=== PATIENT | male | born 1935 | race Caucasian/White ===

== ENCOUNTER 2020-11-06 10:41 | Observation (INO) ==
--- NOTE | 2020-11-06 10:52 | Emergency Department Note ---
History of Present Illness General Chief complaint: Skin Problem Stated complaint: blisters/vasquez on right side of upper arm Time Seen by Provider: 11/06/20 10:49 Source: patient Mode of arrival: ambulatory Limitations: no limitations History of Present Illness Provider Complaint: + rash Onset (ago): day(s) (12) Location: + generalized Severity: severe Current Pain Intensity: 0 Quality: + pruritic Pain Consistency: + constant Relieved By: + none Exacerbated By: + none Context: + other Associated symptoms: + denies other symptoms Treatments prior to arrival: + other (Received trial of steroids as well as Bactrim ) Home Medications Medication Instructions Recorded Confirmed Type aspirin 81 mg tablet,delayed 81 mg PO DAILY #0 10/09/07 11/06/20 History release atenolol 25 mg tablet 25 mg PO DAILY #0 10/09/07 11/06/20 History atorvastatin 40 mg tablet 40 mg PO PM #0 tab 09/14/13 11/06/20 History insulin aspart U-100 100 unit/mL 16 - 18 unit SUBCUT TID 05/02/18 11/06/20 History (3 mL) subcutaneous pen (Novolog Flexpen U-100 Insulin aspart) insulin glargine 100 unit/mL (3 60 unit SUBCUT BID 05/02/18 11/06/20 History mL) subcutaneous pen (Lantus Solostar U-100 Insulin) allopurinol 100 mg tablet 100 mg PO BID 11/06/20 11/06/20 History ascorbic acid (vitamin C) 500 mg 500 mg PO DAILY 11/06/20 11/06/20 History tablet (Vitamin C) famotidine 10 mg tablet 10 mg PO Q2D 11/06/20 11/06/20 History indapamide 2.5 mg tablet 2.5 mg PO DAILY 11/06/20 11/06/20 History losartan 50 mg tablet 50 mg PO DAILY 11/06/20 11/06/20 History rosuvastatin 40 mg tablet 40 mg PO DAILY 11/06/20 11/06/20 History semaglutide 1 mg/dose (4 mg/3 mL) 1 mg SUBCUT WK 11/06/20 11/06/20 History subcutaneous pen injector (Ozempic) sulfamethoxazole 400 1 tab PO BID 11/06/20 11/06/20 History mg-trimethoprim 80 mg tablet Allergies Allergy/AdvReac Type Severity Reaction Status Date / Time No Known Allergies Allergy Mild Verified 11/06/20 12:01 Past Med/Surg History Medical History Bladder cancer Bladder tumor Diabetes Rotator cuff arthropathy of both shoulders Surgical History History of cystoscopy bladder CA Social History Smoking Status: Unknown if ever smoked Hx Alcohol Use: No Hx Substance Use: No Preferred Language: Albanian Communication Ability: Effective Workforce Management Manager Required: No Beliefs That Will Affect Care: None Current Living Situation: Spouse Other Information That Helps Us Care for You: No Feels Safe at Home: Yes Assistive Devices: Denture - Upper, Denture - Lower and Hearing Aid - Bilateral Review of Systems See HPI for pertinent positives & negatives. and A total of 10 systems reviewed and were otherwise negative Physical Exam Vital Signs: Vital Signs - 24 hr 11/06/20 11:00 11/06/20 11:34 11/06/20 13:27 Pulse Rate [Apical ] 55 L 60 Respiratory Rate 20 18 Blood Pressure [Le ft Arm] 133/79 133/79 Blood Pressure Yue n [Left Arm] 97 97 Pulse Oximetry 95 97 Oxygen Delivery Me thod Room Air Room Air Sepsis Recent Feve r Within 48 Hours No Sepsis New/Unexpla ined Change in Men alexus Status No Physical Exam: GENERAL: Wearing a mask. NAD, non-toxic. EYE EXAM: Normal conjunctiva. Blindness of the left eye. OROPHARYNX: Moist mucus membranes. Grossly normal dentition. NECK: Supple, no nuchal rigidity, no adenopathy, non-tender. No signs of menin gismus. LUNGS: Clear to auscultation. Normal chest wall mechanics. HEART: NSR, no MRG. ABDOMEN: Abdomen soft, non-tender, normo-active bowel sounds, no masses, no rebound or guarding. BACK: No CVA TTP. SKIN: Diffuse confluent erythematous rash with occasional bullae, Nikolsky negative, pruritic, nontender, no drainage. This is located over the chest bilateral upper and lower extremities axillary and groin. UPPER EXTREMITIES: Upper extremities are grossly normal. LOWER EXTREMITIES: Grossly normal, no edema. NEURO EXAM: A&O x3, cranial nerves II-XII grossly intact, normal speech, moves all 4 extremities on command w/o issue. Course Course Cardiac monitoring: An order was placed for continuous cardiac monitoring. The monitor shows a rate of 65 with sinus rhythm. Administered Medications Discontinued Medications Miscellaneous Information (Pharmacy Glycemic Mgmt Consult) 1 ea N/A NOW STA Stop: 11/06/20 15:20 Last Admin: 11/06/20 15:31 Dose: Not Given Documented by: [id number] Medical Decision Making Differential Diagnosis Contact dermatitis, viral exanthem, urticaria, allergic reaction, Madison- Mateus syndrome, toxic epidermal necrolysis, erythema multiforme, cellulitis, scabies, HSV, varicella, zoster, eczema, staph scalded skin syndrome, fungal i nfection, as well as other pathologies. Medical Records Attestation: I reviewed the patient's medical records. Home Medications Current Medication List: was personally reviewed by me Laboratory Data Result diagrams: 11/06/20 11:35 11/06/20 11:35 Lab Results 11/06/20 11/06/20 11/06/20 Range/Units 11:35 11:35 11:35 WBC 11.63 H (4.8-10.8) K/uL RBC 5.05 (4.7-6.1) M/uL Hgb 14.4 (14.0-18.0) g/dL Hct 44.0 (42-52) % MCV 87.1 (80-100) fL MCH 28.5 (25-34) pg MCHC 32.7 (32-36) g/dL RDW Std Deviation 49.4 H (36.4-46.3) fL RDW Coeff of Philip 15.5 H (11.5-14.5) % Plt Count 253 (130-400) K/uL MPV 9.5 (7.4-10.4) fL Immature Gran % (Auto) 0.3 % Neut % (Auto) 62.1 % Lymph % (Auto) 16.3 % [place] % (Auto) 7.8 % Eos % (Auto) 13.3 % Baso % (Auto) 0.2 % Neut # (Auto) 7.23 H (1.4-6.5) K/uL Lymph # (Auto) 1.89 (1.2-3.4) K/uL [place] # (Auto) 0.91 H (0.11-0.59) K/uL Eos # (Auto) 1.55 H (0-0.5) K/uL Baso # (Auto) 0.02 (0-0.2) K/uL Immature Gran # (Auto) 0.03 H (0.00-0.02) K/uL Sodium 137 (136-145) mmol/L Potassium 4.5 (3.5-5.1) mmol/L Chloride 106 (98-107) mmol/L Carbon Dioxide 27 (21-32) mmol/L Anion Gap 4.0 (3-11) BUN 41 H (7-18) mg/dl Creatinine 1.88 H (0.6-1.4) mg/dl Est Cr Clr Drug Dosing Not Reportable Est GFR ( Amer) 37.4 ml/min Est GFR (Non-Af Amer) 32.3 ml/min BUN/Creatinine Ratio 21.8 H (10-20) Glucose 148 H (70-99) mg/dl Calcium 9.6 (8.5-10.1) mg/dl Total Bilirubin 0.3 (0.2-1) mg/dl Direct Bilirubin < 0.1 (0-0.2) mg/dl AST 53 H (15-37) U/L ALT 85 H (12-78) U/L Alkaline Phosphatase 92 (45-117) U/L Total Protein 7.2 (6.4-8.2) gm/dl Albumin 3.6 (3.4-5.0) gm/dl COVID-19 Eval Order SARS-CoV-2 (PCR) (Negative) 11/06/20 11/06/20 Range/Units 13:21 13:21 WBC (4.8-10.8) K/uL RBC (4.7-6.1) M/uL Hgb (14.0-18.0) g/dL Hct (42-52) % MCV (80-100) fL MCH (25-34) pg MCHC (32-36) g/dL RDW Std Deviation (36.4-46.3) fL RDW Coeff of Philip (11.5-14.5) % Plt Count (130-400) K/uL MPV (7.4-10.4) fL Immature Gran % (Auto) % Neut % (Auto) % Lymph % (Auto) % [place] % (Auto) % Eos % (Auto) % Baso % (Auto) % Neut # (Auto) (1.4-6.5) K/uL Lymph # (Auto) (1.2-3.4) K/uL [place] # (Auto) (0.11-0.59) K/uL Eos # (Auto) (0-0.5) K/uL Baso # (Auto) (0-0.2) K/uL Immature Gran # (Auto) (0.00-0.02) K/uL Sodium (136-145) mmol/L Potassium (3.5-5.1) mmol/L Chloride (98-107) mmol/L Carbon Dioxide (21-32) mmol/L Anion Gap (3-11) BUN (7-18) mg/dl Creatinine (0.6-1.4) mg/dl Est Cr Clr Drug Dosing Est GFR ( Amer) ml/min Est GFR (Non-Af Amer) ml/min BUN/Creatinine Ratio (10-20) Glucose (70-99) mg/dl Calcium (8.5-10.1) mg/dl Total Bilirubin (0.2-1) mg/dl Direct Bilirubin (0-0.2) mg/dl AST (15-37) U/L ALT (12-78) U/L Alkaline Phosphatase (45-117) U/L Total Protein (6.4-8.2) gm/dl Albumin (3.4-5.0) gm/dl COVID-19 Eval Order Covid19 at [facility] SARS-CoV-2 (PCR) NEGATIVE (Negative) MDM Narrative Patient was seen due to concern for blistering and itchiness. The patient had been trialed on a short course of steroids back on the subsequently was placed on Bactrim on the . Patient does not complain of any pain. He has not had improvement in symptoms. The patient does have a known history of insulin-dependent diabetes. Patient did have blood work completed and the patient unfortunately may have an element of bullous pemphigoid. Given that it has been somewhat resistant to steroid treatment I did try and attempt to page the local certified tower climber that the patient may benefit from admission and treatment. Local certified tower climber Dr. Shields is currently on vacation and not able to see the patient in patient. Given the patient's history of insulin-dependent diabetes as well as the renal issues I did speak the on-call hospitalist EDWARD ovalle. The patient was admitted by Dr. Lopez. They will plan to [facility] dermatology at [facility]. Current recommendations are for higher dose steroids with a recommended 10 mg taper week to week. Patient does not have any systemic symptoms or oral or mucosal involvement. Believe SJS to be less likely. Patient was admitted to the medicine service. Impression & Plan Bullous pemphigoid, Hyperglycemia, CKD (chronic kidney disease) Discharge Plan Visit Data Chief Complaint: Skin Problem Stated Complaint: blisters/vasquez on right side of upper arm ED Provider: Kaleb Page Discharge Problem: Bullous pemphigoid, Hyperglycemia, CKD (chronic kidney disease) Patient Disposition: Admitted As Inpatient Discharge Instructions Interventions: ED Discharge Assessment Last Done: 11/06/20 15:41
[2020-11-06 11:44] LABS: Basophils # (auto) 0.02 K/uL (0-0.2); Basophils % (auto) 0.2 %; Eosinophils # (auto) 1.55 K/uL (0-0.5); Eosinophils % (auto) 13.3 %; Hemoglobin 14.4 g/dL (14.0-18.0); Immature Granulocytes # (auto) 0.03 K/uL (0.00-0.02); Immature Granulocytes % (auto) 0.3 %; Lymphocytes # (auto) 1.89 K/uL (1.2-3.4); Lymphocytes % (auto) 16.3 %; Mean Corpuscular Hemoglobin 28.5 pg (25-34); Mean Corpuscular Hgb Conc 32.7 g/dL (32-36); Mean Corpuscular Volume 87.1 fL (80-100); Mean Platelet Volume 9.5 fL (7.4-10.4); Monocytes # (auto) 0.91 K/uL (0.11-0.59); Monocytes % (auto) 7.8 %; Neutrophils # (auto) 7.23 K/uL (1.4-6.5); Neutrophils % (auto) 62.1 %; Platelet Count 253 K/uL (130-400); RDW Coefficient of Variation 15.5 % (11.5-14.5); RDW Standard Deviation 49.4 fL (36.4-46.3); Red Blood Count 5.05 M/uL (4.7-6.1); White Blood Count 11.63 K/uL (4.8-10.8)
[2020-11-06 12:03] LABS: BUN Creatinine Ratio 21.8 (10-20); Blood Urea Nitrogen 41 mg/dl (7-18); Calcium 9.6 mg/dl (8.5-10.1); Carbon Dioxide 27 mmol/L (21-32); Chloride 106 mmol/L (98-107); Est GFR (African American) 37.4 ml/min; Est GFR (Non-African American) 32.3 ml/min; Glucose 148 mg/dl (70-99); Potassium 4.5 mmol/L (3.5-5.1); Sodium 137 mmol/L (136-145)
[2020-11-06] MEDS ORDERED: PHARMACY GLYCEMIC MGMT CONSULT STA (15:19)
[2020-11-06 15:58] LABS: Alanine Aminotransferase 85 U/L (12-78); Albumin Level 3.6 gm/dl (3.4-5.0); Alkaline Phosphatase 92 U/L (45-117); Aspartate Aminotransferase 53 U/L (15-37); Bilirubin Direct < 0.1 mg/dl (0-0.2); Bilirubin,Total 0.3 mg/dl (0.2-1); Total Protein 7.2 gm/dl (6.4-8.2)
[2020-11-06] MEDS ORDERED: ACETAMINOPHEN 325 MG TAB PO PRN (16:19)
[2020-11-06] MEDS ORDERED: PATIENT'S HEIGHT AND/OR WEIGHT NEEDED SCH (16:30)
[2020-11-06] MEDS ORDERED: PHARMACY GLYCEMIC MGMT CONSULT PRN (16:33)
--- NOTE | 2020-11-06 16:47 | History & Physical Report ---
Date of Service November 06, 2020 Assessment & Plan (1) Bullous pemphigoid: (2) DM type 2 (diabetes mellitus, type 2): (3) HTN (hypertension): (4) CKD (chronic kidney disease), stage IV: (5) DVT prophylaxis: Admission and Anticipated Discharge Date Admission Date: November 06, 2020 History of Present Illness Chief Complaint: Rash, referred by PCP Primary Care Provider: Laura Self, 85-year-old male with PMH DM type II, dyslipidemia, HTN, history of bladder cancer, and other problems listed below who presents to the ED by referral of outpatient provider for evaluation of ongoing rash. On 10/25, patient was seen in clinic and diagnosed with dermatitis. Was placed on a prednisone taper. Was reevaluated on 10/30 and rash was worsening so he then received Solu-Medrol IM x1 and started on Pepcid and Bactrim. Patient was reevaluated once again today and it was noted that blisters were worsening and started to involve patient's palms. He was then referred to the ED for further evaluation. No oral involvement is noted. Patient denies fevers and chills. Reports he has been feeling well. No chest pain or shortness of breath. Denies lightheadedness, dizziness, diaphoresis, syncopal events. No abdominal pain, nausea, vomiting, diarrhea. Denies urinary symptoms. Through secure texting Huan Xiong, I sent Dr. Man Sosa, dermatology [place] [facility], pictures of patient's diffuse rash and blisters. He feels as though rash is consistent with bullous pemphigoid. Recommends prednisone 60 mg daily x1 week and then to reduce by 10 mg every week. Will need close outpatient follow-up with dermatology for biopsy. Patient will be admitted for close monitoring of blood sugars while receiving high-dose steroids. Allergies Allergy/AdvReac Type Severity Reaction Status Date / Time No Known Allergies Allergy Mild Verified 11/06/20 12:01 Home Medications Medication Instructions Recorded Confirmed Type aspirin 81 mg tablet,delayed 81 mg PO DAILY #0 10/09/07 11/06/20 History release atenolol 25 mg tablet 25 mg PO DAILY #0 10/09/07 11/06/20 History atorvastatin 40 mg tablet 40 mg PO PM #0 tab 09/14/13 11/06/20 History insulin aspart U-100 100 unit/mL 16 - 18 unit SUBCUT TID 05/02/18 11/06/20 History (3 mL) subcutaneous pen (Novolog Flexpen U-100 Insulin aspart) insulin glargine 100 unit/mL (3 60 unit SUBCUT BID 05/02/18 11/06/20 History mL) subcutaneous pen (Lantus Solostar U-100 Insulin) allopurinol 100 mg tablet 100 mg PO BID 11/06/20 11/06/20 History ascorbic acid (vitamin C) 500 mg 500 mg PO DAILY 11/06/20 11/06/20 History tablet (Vitamin C) famotidine 10 mg tablet 10 mg PO Q2D 11/06/20 11/06/20 History indapamide 2.5 mg tablet 2.5 mg PO DAILY 11/06/20 11/06/20 History losartan 50 mg tablet 50 mg PO DAILY 11/06/20 11/06/20 History rosuvastatin 40 mg tablet 40 mg PO DAILY 11/06/20 11/06/20 History semaglutide 1 mg/dose (4 mg/3 mL) 1 mg SUBCUT WK 11/06/20 11/06/20 History subcutaneous pen injector (Ozempic) sulfamethoxazole 400 1 tab PO BID 11/06/20 11/06/20 History mg-trimethoprim 80 mg tablet Past Med/Surg History Medical History Bladder cancer CKD (chronic kidney disease), stage IV DM type 2 (diabetes mellitus, type 2) Dyslipidemia History of gout HTN (hypertension) RBBB (right bundle branch block with left anterior fascicular block) Rotator cuff arthropathy of both shoulders Surgical History History of bladder surgery bladder tumor resected History of cystoscopy bladder CA Family History Father Heart disease Social History (Updated 11/06/20 @ 16:48 by EDWARD Peña) Smoking Status: Former smoker Hx Alcohol Use: No Hx Substance Use: No Preferred Language: Chinese Communication Ability: Effective Health Concierge Required: No Beliefs That Will Affect Care: None Current Living Situation: Spouse Other Information That Helps Us Care for You: No Feels Safe at Home: Yes Assistive Devices: Denture - Upper, Denture - Lower and Hearing Aid - Bilateral Review of Systems Review of Systems: ROS per HPI, all other systems reviewed and negative Physical Exam Constitutional: WD/WN, vitals as above Eyes: PERRL, conjunctivae normal, anicteric sclerae ENMT: external ear and nose normal, oropharynx normal Respiratory: normal respiratory effort, lungs clear to auscultation Cardiovascular: Rate/Rhythm: regular rate and regular rhythm Vessels: normal peripheral pulses Extremities: no edema Gastrointestinal (Abdomen): normal bowel sounds, soft, nontender, no hepatosplenomegaly Musculoskeletal: no cyanosis or clubbing, extremities motor strength 5/5 Skin: + rash Diffuse erythematous rash with some scattered areas of blistering involving bilateral arms and legs and trunk Neurologic: PERRL, EOMI, accommodation nl, no face palsy, no dysarthria Psychiatric: A+Ox3, euthymic affect Results & Data Results & Data ([place]) Vital Signs (Past 12 Hours) Vital Signs Temp Pulse Pulse Resp BP Pulse Ox 11/06/20 16:00 36.4 C L 65 18 161/85 H 97 11/06/20 13:27 60 18 133/79 97 11/06/20 11:34 55 L 20 133/79 95 Laboratory Results Short CBC 11/06/20 Range/Units 11:35 WBC 11.63 H (4.8-10.8) K/uL Hgb 14.4 (14.0-18.0) g/dL Hct 44.0 (42-52) % Plt Count 253 (130-400) K/uL BMP 11/06/20 11:35 Sodium 137 Potassium 4.5 Chloride 106 Carbon Dioxide 27 BUN 41 H Creatinine 1.88 H Glucose 148 H Calcium 9.6 Liver Function 11/06/20 Range/Units 11:35 Total Bilirubin 0.3 (0.2-1) mg/dl Direct Bilirubin < 0.1 (0-0.2) mg/dl AST 53 H (15-37) U/L ALT 85 H (12-78) U/L Alkaline Phosphatase 92 (45-117) U/L Albumin 3.6 (3.4-5.0) gm/dl Code Status & VTE Plan Code Status Patient is a full code as per my discussion with him. VTE Prophylaxis Plan VTE Prophylaxis will be ordered: Yes Supervising Physician Co-Signing Physician Notes Attending addendum The patient was seen and examined in medical floor He has been complaining of generalized bullous lesions for the last 10 to 14 days Started initially in the left palm and hand area and then gradually involved whole of the body and in between received Bactrim for possible skin infection Was seen in the clinic and was sent in for further evaluation Denies any significant symptoms except the rash No involvement of the mucous membranes On examination No apparent distress at rest Hemodynamically stable Generalized bolus lesions without involvement of the mucous membrane of the mouth and/or genital area Chest-clear to auscultate bilaterally Heart-S1-S2, regular Abdomen-benign Extremities-negative for any edema Admission labs and imaging studies reviewed White count slightly elevated with eosinophilia liver function is slightly elevated as well and kidney function remains stable The case was discussed with coach [facility] medical facilities section director and medication is started according Eventually will need a skin biopsy to diagnose Agree with assessment and plan as outlined above by Elizabeth Lopez
[2020-11-06] MEDS: predniSONE 20 MG TAB PO SCH (17:31)
[2020-11-06] MEDS ORDERED: INSULIN HUMAN NPH SC ONE (17:45)
[2020-11-06] MEDS: INSULIN ASPART 100 UNITS/ML 3 ML PEN SC SCH ×2 (18:16→20:49)
[2020-11-06] MEDS ORDERED: GLUCOSE 10 TABS/TUBE PO PRN (20:30)
[2020-11-06] MEDS ORDERED: CARBOHYDRATES FOR HYPOGLYCEMIA PO PRN (20:30)
[2020-11-06] MEDS ORDERED: GLUCOSE 40% GEL 15 GM TUBE PO PRN (20:30)
[2020-11-06] MEDS ORDERED: GLUCAGON FOR INJ 1 MG VIAL IM PRN (20:30)
[2020-11-06] MEDS ORDERED: DEXTROSE 50% 50 ML SYRINGE IV PRN (20:30)
[2020-11-06] MEDS: INSULIN GLARGINE SOLOSTAR 100 UNITS/ML 3 ML PEN SC SCH (20:52)
[2020-11-06] MEDS: HEPARIN SOD 5,000 UNIT/0.5 ML VIAL SQ SCH (20:54)
[2020-11-06] MEDS: allopurinoL 100 MG TAB PO SCH (20:54)
[2020-11-06] MEDS: FAMOTIDINE 10 MG TABLET PO SCH (20:54)
[2020-11-06] MEDS: ATORVASTATIN 40 MG TAB PO SCH (20:54)
[2020-11-06] MEDS: diphenhydrAMINE Capsule 25 MG CAP PO PRN (20:55)
[2020-11-07] MEDS: HEPARIN SOD 5,000 UNIT/0.5 ML VIAL SQ SCH ×3 (06:05→21:10)
[2020-11-07 07:52] LABS: Hematocrit (blood only) 44.7 % (42-52); Hemoglobin 14.5 g/dL (14.0-18.0); Mean Corpuscular Hemoglobin 28.3 pg (25-34); Mean Corpuscular Hgb Conc 32.4 g/dL (32-36); Mean Corpuscular Volume 87.1 fL (80-100); Mean Platelet Volume 9.9 fL (7.4-10.4); Platelet Count 269 K/uL (130-400); RDW Coefficient of Variation 15.4 % (11.5-14.5); RDW Standard Deviation 49.4 fL (36.4-46.3); Red Blood Count 5.13 M/uL (4.7-6.1); White Blood Count 13.77 K/uL (4.8-10.8)
[2020-11-07 08:11] LABS: BUN Creatinine Ratio 19.7 (10-20); Calcium 9.6 mg/dl (8.5-10.1); Creatinine Clr Calc Pharmacy 28.3 ml/min; Est GFR (African American) 28.6 ml/min; Est GFR (Non-African American) 24.7 ml/min; Potassium 4.8 mmol/L (3.5-5.1)
[2020-11-07] MEDS: ASPIRIN 81 MG ECTAB PO SCH (09:00)
[2020-11-07] MEDS: SODIUM CHLORIDE 0.9% 1000ML 1,000 ML IV SCH ×2 (09:00→17:00)
[2020-11-07] MEDS: FAMOTIDINE 10 MG TABLET PO SCH ×2 (09:00→21:10)
[2020-11-07] MEDS ORDERED: INSULIN HUMAN NPH SC SCH (09:00)
[2020-11-07] MEDS: LOSARTAN POTASSIUM 50 MG TAB PO SCH (09:01)
[2020-11-07] MEDS: INDAPAMIDE 1.25 MG TAB PO SCH (09:01)
[2020-11-07] MEDS: ATENOLOL 25 MG TABLET PO SCH (09:01)
[2020-11-07] MEDS: ROSUVASTATIN CALCIUM 20 MG TAB PO SCH (09:01)
[2020-11-07] MEDS: allopurinoL 100 MG TAB PO SCH ×2 (09:01→21:10)
[2020-11-07] MEDS: predniSONE 20 MG TAB PO SCH (09:02)
[2020-11-07] MEDS: INSULIN GLARGINE SOLOSTAR 100 UNITS/ML 3 ML PEN SC SCH ×2 (09:04→21:11)
[2020-11-07] MEDS: INSULIN ASPART 100 UNITS/ML 3 ML PEN SC SCH ×4 (09:13→21:10)
--- NOTE | 2020-11-07 13:10 | Hospitalist Progress Note ---
Date of Service November 07, 2020 Assessment & Plan (1) Bullous pemphigoid: Plan: Patient presenting by referral of PCP for eval of ongoing rash Through secure texting TigerText, I sent Dr. Man Sosa, dermatology at [facility] [place], pictures of patient's diffuse rash and blisters. He feels as though rash is consistent with bullous pemphigoid. Recommends prednisone 60 mg daily x1 week and then to reduce by 10 mg every week. Will need close outpatient follow-up with dermatology for biopsy. Scheduled famotidine, as needed Benadryl Clinically much better and with with more than 70% improvement of his rash He is totally asymptomatic and will be discharged home this afternoon He will have biopsy of the skin likely tomorrow (2) DM type 2 (diabetes mellitus, type 2): Plan: -hgb a1c 12.8 03/2020 Hemoglobin A1c is pending On Lantus, Novolog, and Ozempic at home Prednisone has not been changing his blood sugar too much (3) HTN (hypertension): Plan: Blood pressure remains controlled (4) CKD (chronic kidney disease), stage IV: Plan: -Baseline creatinine runs in the high 1's -Noted to be 1.8 today -Creatinine went up to 2.35 -We will give intravenous fluid and and was advised to drink more fluid -Repeat PRP at 4:00 and if creatinine is trending down we will send the patient home (5) DVT prophylaxis: Plan: Subcu heparin Admission and Anticipated Discharge Date Admission Date: November 06, 2020 Subjective 11/07/2020 The patient was seen and examined in medical unit He denies any symptoms and the generalized rash has improved a lot Denies any itching or any oozing from the any of the bullous lesion No fever and no chills Review of Systems Review of Systems: All systems reviewed and are unremarkable except as noted below Integumentary: Bullous lesion generalized Physical Exam Physical Exam: Lying in bed comfortably Constitutional: well developed and well nourished; not ill appearing Eyes: PERRL, conjunctivae normal, anicteric sclerae ENMT: external ear and nose normal, oropharynx normal Neck: trachea midline, no thyromegaly Respiratory: normal respiratory effort, lungs clear to auscultation Cardiovascular: Rate/Rhythm: regular rate and regular rhythm Heart Sounds: normal S1 and normal S2; no murmur Gastrointestinal (Abdomen): normal bowel sounds, soft, nontender, no hepatosplenomegaly Musculoskeletal: No acute arthritis in any joint Skin: Generalized bolus . Macular and urticarial rash Neurologic: Alert, awake and oriented x3. No focal sensory and/or motor deficit appreciated Lymphatic: no cervical or axillary lymphadenopathy Results & Data Results & Data ([facility]) Vital Signs (Past 12 Hours) Vital Signs Temp Pulse Resp BP Pulse Ox 11/07/20 07:13 36.6 C 84 16 131/71 93 Laboratory Results Short CBC 11/07/20 Range/Units 07:22 WBC 13.77 H (4.8-10.8) K/uL Hgb 14.5 (14.0-18.0) g/dL Hct 44.7 (42-52) % Plt Count 269 (130-400) K/uL BMP 11/07/20 07:22 Sodium 136 Potassium 4.8 Chloride 106 Carbon Dioxide 21 BUN 46 H Creatinine 2.35 H D Glucose 216 H Calcium 9.6 Liver Function 11/06/20 Range/Units 11:35 Total Bilirubin 0.3 (0.2-1) mg/dl Direct Bilirubin < 0.1 (0-0.2) mg/dl AST 53 H (15-37) U/L ALT 85 H (12-78) U/L Alkaline Phosphatase 92 (45-117) U/L Albumin 3.6 (3.4-5.0) gm/dl Medications Administered Current Inpatient Medications Acetaminophen (Acetaminophen 325 Mg Tab) 650 mg PO Q4H PRN PRN Reason: pain/fever Stop: 12/06/20 16:18 Allopurinol (Allopurinol 100 Mg Tab) 100 mg PO BID TERRI Stop: 12/06/20 20:59 Last Admin: 11/07/20 09:01 Dose: 100 mg Documented by: Aspirin (Aspirin 81 Mg Ectab) 81 mg PO DAILY TERRI Stop: 12/07/20 08:59 Last Admin: 11/07/20 09:00 Dose: 81 mg Documented by: Atenolol (Atenolol 25 Mg Tablet) 25 mg PO DAILY TERRI Stop: 12/07/20 08:59 Last Admin: 11/07/20 09:01 Dose: 25 mg Documented by: Atorvastatin Calcium (Atorvastatin 40 Mg Tab) 40 mg PO PM TERRI Stop: 12/06/20 20:59 Last Admin: 11/06/20 20:54 Dose: 40 mg Documented by: Dextrose (Dextrose 50% 50 Ml Syringe) 25 - 50 ml IV UD PRN; Protocol PRN Reason: Hypoglycemia Protocol Stop: 12/06/20 20:29 Diphenhydramine HCl (Diphenhydramine Capsule 25 Mg Cap) 25 mg PO Q8H PRN PRN Reason: itching Stop: 12/06/20 16:18 Last Admin: 11/06/20 20:55 Dose: 25 mg Documented by: Famotidine (Famotidine 10 Mg Tablet) 10 mg PO BID TERRI Stop: 12/06/20 20:59 Last Admin: 11/07/20 09:00 Dose: 10 mg Documented by: Glucagon (Glucagon For Inj 1 Mg Vial) 1 mg IM UD PRN; Protocol PRN Reason: Hypoglycemia Protocol Stop: 12/06/20 20:29 Glucose (Glucose 40% Gel 15 Gm Tube) 15 - 30 gm PO UD PRN; Protocol PRN Reason: Hypoglycemia Protocol Stop: 12/06/20 20:29 Glucose (Glucose 10 Tabs/Tube) 4 - 8 tabs PO UD PRN; Protocol PRN Reason: Hypoglycemia Protocol Stop: 12/06/20 20:29 Heparin Sodium (Porcine) (Heparin Sod 5,000 Unit/0.5 Ml Vial) 5,000 units SQ Q8 TERRI Stop: 12/06/20 21:59 Last Admin: 11/07/20 06:05 Dose: Not Given Documented by: Sodium Chloride (Nss 1000ml) 1,000 mls @ 125 mls/hr IV .Q8H TERRI Stop: 11/08/20 08:44 Last Admin: 11/07/20 09:00 Dose: 125 mls/hr Documented by: Indapamide (Indapamide 1.25 Mg Tab) 2.5 mg PO DAILY [facility] Stop: 12/07/20 08:59 Last Admin: 11/07/20 09:01 Dose: 2.5 mg Documented by: Insulin Aspart (Insulin Aspart 100 Units/Ml 3 Ml Pen) 0 units SC ACHS [facility] Stop: 12/06/20 17:29 Last Admin: 11/07/20 09:13 Dose: 12 units Documented by: Insulin Glargine (Insulin Glargine Solostar 100 Units/Ml 3 Ml Pen) 0 units SC BID TERRI; Protocol Stop: 12/06/20 20:59 Last Admin: 11/07/20 09:04 Dose: 50 units Documented by: Insulin Human NPH (Insulin Human Nph) 30 units SC QAM [facility]; Protocol Stop: 12/07/20 08:59 Last Admin: 11/07/20 09:02 Dose: 30 units Documented by: Losartan Potassium (Losartan Potassium 50 Mg Tab) 50 mg PO DAILY [facility] Stop: 12/07/20 08:59 Last Admin: 11/07/20 09:01 Dose: 50 mg Documented by: Miscellaneous (Carbohydrates For Hypoglycemia ) 15 - 30 gm PO UD PRN PRN Reason: Hypoglycemia Treatment Stop: 12/06/20 20:29 Miscellaneous Information (Pharmacy Glycemic Mgmt Consult) 1 ea N/A UD PRN PRN Reason: Consult Stop: 12/06/20 16:32 Prednisone (Prednisone 20 Mg Tab) 60 mg PO DAILY [facility] Stop: 12/06/20 15:14 Last Admin: 11/07/20 09:02 Dose: 60 mg Documented by: Rosuvastatin Calcium (Rosuvastatin Calcium 20 Mg Tab) 40 mg PO DAILY [facility] Stop: 12/07/20 08:59 Last Admin: 11/07/20 09:01 Dose: 40 mg Documented by:
--- NOTE | 2020-11-07 15:09 | Pharmacy Report ---
Pharmacy Glycemic Short Note 2 - Date of Service November 07, 2020 - Glycemic Short BSG Results (Last 24 hours): 11/06/20 11/06/20 11/07/20 17:29 20:41 07:22 Glucose 216 H POC Glucose 135 H 105 H 11/07/20 11/07/20 08:17 12:30 Glucose POC Glucose 203 H 227 H OUTPATIENT ANTIDIABETIC REGIMEN: * Lantus 60 units SQ BID * Novolog 16-18 units TID * Semaglutide 1 mg weekly * A1c pending ASSESSMENT: * Roberto is a 85 yo T2DM male on significant doses of insulin at home (~170 units/day). Home regimen is basal heavy. * Degree of outpatient glycemic control is unknown. A1c pending. Previous A1c from Mar 2020 was 12.8%. * Fasting BSG was elevated at 203 mg/dL. Patient received reduced dose of Lantus last evening (compared to home dose). Will continue Lantus dosed per scale until basal needs are better known. * NPH has been added for steroid induced hyperglycemia. Patient remains on prednisone 60 mg daily. Will tighten carb coverage for post prandial BSG elevation. PLAN FOR INPATIENT GLYCEMIC CONTROL: * Hold outpatient oral diabetes medications * Basal insulin * Lantus per scale SQ BID: * 30 units for BSG < 140 * 40 units for BSG 140-180 * 50 units for BSG > 180 * Bolus insulin * NovoLog per scale ACHS or Q6hrs while NPO * Goal Range: Low 110 mg/dL - High 140 mg/dL * Correction Factor: 20 mg/dL/unit * Nutritional / Prandial insulin per carb ratio of 1 unit per 5 grams CHO consumed PLAN FOR DISCHARGE: *
[2020-11-07 16:29] LABS: BUN Creatinine Ratio 20.5 (10-20); Calcium 9.2 mg/dl (8.5-10.1); Creatinine Clr Calc Pharmacy 29.1 ml/min; Est GFR (African American) 29.7 ml/min; Est GFR (Non-African American) 25.6 ml/min; Magnesium 2.1 mg/dl (1.8-2.4); Potassium 4.7 mmol/L (3.5-5.1)
[2020-11-07] MEDS: ATORVASTATIN 40 MG TAB PO SCH (21:10)
[2020-11-07] MEDS: diphenhydrAMINE Capsule 25 MG CAP PO PRN (21:20)
[2020-11-08] MEDS ORDERED: INSULIN ASPART 100 UNITS/ML 3 ML PEN SC SCH
[2020-11-08] MEDS: SODIUM CHLORIDE 0.9% 1000ML 1,000 ML IV SCH (00:05)
[2020-11-08] MEDS: HEPARIN SOD 5,000 UNIT/0.5 ML VIAL SQ SCH ×2 (06:24→14:49)
[2020-11-08] MEDS ORDERED: LOPERAMIDE HCL 2 MG CAP PO STA (06:45)
[2020-11-08 07:51] LABS: Estimated Average Glucose 223 mg/dl; Hemoglobin A1C 9.4 % (4.5-5.6)
[2020-11-08 08:30] LABS: Eosinophils # (auto) 0.01 K/uL (0-0.5); Eosinophils % (auto) 0.1 %; Hematocrit (blood only) 40.8 % (42-52); Hemoglobin 13.3 g/dL (14.0-18.0); Immature Granulocytes # (auto) 0.04 K/uL (0.00-0.02); Immature Granulocytes % (auto) 0.3 %; Lymphocytes # (auto) 1.18 K/uL (1.2-3.4); Mean Corpuscular Hemoglobin 28.7 pg (25-34); Mean Corpuscular Hgb Conc 32.6 g/dL (32-36); Mean Corpuscular Volume 87.9 fL (80-100); Mean Platelet Volume 9.6 fL (7.4-10.4); Monocytes # (auto) 1.05 K/uL (0.11-0.59); Neutrophils # (auto) 10.89 K/uL (1.4-6.5); Neutrophils % (auto) 82.6 %; Platelet Count 270 K/uL (130-400); RDW Coefficient of Variation 15.6 % (11.5-14.5); RDW Standard Deviation 49.7 fL (36.4-46.3); Red Blood Count 4.64 M/uL (4.7-6.1); White Blood Count 13.17 K/uL (4.8-10.8)
[2020-11-08 08:59] LABS: BUN Creatinine Ratio 22.1 (10-20); Calcium 8.8 mg/dl (8.5-10.1); Creatinine Clr Calc Pharmacy 34.1 ml/min; Est GFR (African American) 35.8 ml/min; Est GFR (Non-African American) 30.9 ml/min; Potassium 4.2 mmol/L (3.5-5.1)
[2020-11-08] MEDS ORDERED: INSULIN HUMAN NPH SC SCH (09:00)
[2020-11-08] MEDS: INSULIN ASPART 100 UNITS/ML 3 ML PEN SC SCH ×2 (09:15→13:11)
[2020-11-08] MEDS: INSULIN GLARGINE SOLOSTAR 100 UNITS/ML 3 ML PEN SC SCH (09:17)
[2020-11-08] MEDS: allopurinoL 100 MG TAB PO SCH (09:20)
[2020-11-08] MEDS: ATENOLOL 25 MG TABLET PO SCH (09:20)
[2020-11-08] MEDS: INDAPAMIDE 1.25 MG TAB PO SCH (09:20)
[2020-11-08] MEDS: FAMOTIDINE 10 MG TABLET PO SCH (09:20)
[2020-11-08] MEDS: ROSUVASTATIN CALCIUM 20 MG TAB PO SCH (09:21)
[2020-11-08] MEDS: LOSARTAN POTASSIUM 50 MG TAB PO SCH (09:21)
[2020-11-08] MEDS: ASPIRIN 81 MG ECTAB PO SCH (09:21)
[2020-11-08] MEDS: predniSONE 20 MG TAB PO SCH (09:22)
--- NOTE | 2020-11-08 11:02 | Hospitalist Progress Note ---
Date of Service November 08, 2020 Assessment & Plan (1) Bullous pemphigoid: Plan: Patient presenting by referral of PCP for eval of ongoing rash Through secure texting [employer], I sent Dr. Man Sosa, dermatology at [facility], pictures of patient's diffuse rash and blisters. He feels as though rash is consistent with bullous pemphigoid. Recommends prednisone 60 mg daily x1 week and then to reduce by 10 mg every week. Will need close outpatient follow-up with dermatology for biopsy. Scheduled famotidine, as needed Benadryl Clinically much better and with with more than 70% improvement of his rash Even better today but the bullous lesion persists He will have biopsy on of this month Will be discharged home this afternoon (2) DM type 2 (diabetes mellitus, type 2): Plan: -hgb a1c 12.8 03/2020 Hemoglobin A1c is pending On Lantus, Novolog, and Ozempic at home Prednisone has not been changing his blood sugar too much Blood sugar remains stable Appreciate pharmacy input and recommendation (3) HTN (hypertension): Plan: Blood pressure remains controlled (4) CKD (chronic kidney disease), stage IV: Plan: -Baseline creatinine runs in the high 1's -Noted to be 1.8 today -Creatinine went up to 2.35 -We will give intravenous fluid and and was advised to drink more fluid -Creatinine is improved to 1.95 -He was advised to drink more fluid (5) DVT prophylaxis: Plan: Subcu heparin Plan: Discharge home this afternoon Admission and Anticipated Discharge Date Admission Date: November 06, 2020 Subjective 11/07/2020 The patient was seen and examined in medical unit He denies any symptoms and the generalized rash has improved a lot Denies any itching or any oozing from the any of the bullous lesion No fever and no chills 11/08/2020 The patient was seen and examined in medical floor He has been feeling a lot better Still has generalized bullous lesion but the erythema is almost gone Denies any other symptoms Review of Systems Review of Systems: All systems reviewed and are unremarkable except as noted below Integumentary: Bullous lesion generalized Physical Exam Physical Exam: Lying in bed comfortably Constitutional: well developed and well nourished; not ill appearing Eyes: PERRL, conjunctivae normal, anicteric sclerae ENMT: external ear and nose normal, oropharynx normal Neck: trachea midline, no thyromegaly Respiratory: normal respiratory effort, lungs clear to auscultation Cardiovascular: Rate/Rhythm: regular rate and regular rhythm Heart Sounds: normal S1 and normal S2; no murmur Gastrointestinal (Abdomen): normal bowel sounds, soft, nontender, no hepatosplenomegaly Skin: Generalized bullous lesion, erythema and urticaria are improved Neurologic: Alert, awake and oriented x3. No focal sensory or motor deficit appreciated Lymphatic: no cervical or axillary lymphadenopathy Results & Data Results & Data ([facility]) Vital Signs (Past 12 Hours) Vital Signs Temp Pulse Resp BP Pulse Ox 11/08/20 07:04 36.3 C L 63 18 134/68 96 Laboratory Results Short CBC 11/08/20 Range/Units 08:05 WBC 13.17 H (4.8-10.8) K/uL Hgb 13.3 L (14.0-18.0) g/dL Hct 40.8 L (42-52) % Plt Count 270 (130-400) K/uL BMP 11/07/20 11/08/20 15:32 08:05 Sodium 134 L 140 Potassium 4.7 4.2 Chloride 101 110 H Carbon Dioxide 22 23 BUN 47 H 43 H Creatinine 2.28 H 1.95 H D Glucose 338 H* 100 H Calcium 9.2 8.8 Medications Administered Current Inpatient Medications Acetaminophen (Acetaminophen 325 Mg Tab) 650 mg PO Q4H PRN PRN Reason: pain/fever Stop: 12/06/20 16:18 Allopurinol (Allopurinol 100 Mg Tab) 100 mg PO BID TERRI Stop: 12/06/20 20:59 Last Admin: 11/08/20 09:20 Dose: 100 mg Documented by: Aspirin (Aspirin 81 Mg Ectab) 81 mg PO DAILY TERRI Stop: 12/07/20 08:59 Last Admin: 11/08/20 09:21 Dose: 81 mg Documented by: Atenolol (Atenolol 25 Mg Tablet) 25 mg PO DAILY TERRI Stop: 12/07/20 08:59 Last Admin: 11/08/20 09:20 Dose: 25 mg Documented by: Atorvastatin Calcium (Atorvastatin 40 Mg Tab) 40 mg PO PM TERRI Stop: 12/06/20 20:59 Last Admin: 11/07/20 21:10 Dose: 40 mg Documented by: Dextrose (Dextrose 50% 50 Ml Syringe) 25 - 50 ml IV UD PRN; Protocol PRN Reason: Hypoglycemia Protocol Stop: 12/06/20 20:29 Diphenhydramine HCl (Diphenhydramine Capsule 25 Mg Cap) 25 mg PO Q8H PRN PRN Reason: itching Stop: 12/06/20 16:18 Last Admin: 11/07/20 21:20 Dose: 25 mg Documented by: Famotidine (Famotidine 10 Mg Tablet) 10 mg PO BID [facility] Stop: 12/06/20 20:59 Last Admin: 11/08/20 09:20 Dose: 10 mg Documented by: Glucagon (Glucagon For Inj 1 Mg Vial) 1 mg IM UD PRN; Protocol PRN Reason: Hypoglycemia Protocol Stop: 12/06/20 20:29 Glucose (Glucose 40% Gel 15 Gm Tube) 15 - 30 gm PO UD PRN; Protocol PRN Reason: Hypoglycemia Protocol Stop: 12/06/20 20:29 Glucose (Glucose 10 Tabs/Tube) 4 - 8 tabs PO UD PRN; Protocol PRN Reason: Hypoglycemia Protocol Stop: 12/06/20 20:29 Heparin Sodium (Porcine) (Heparin Sod 5,000 Unit/0.5 Ml Vial) 5,000 units SQ Q8 TERRI Stop: 12/06/20 21:59 Last Admin: 11/08/20 06:24 Dose: 5,000 units Documented by: Indapamide (Indapamide 1.25 Mg Tab) 2.5 mg PO DAILY [facility] Stop: 12/07/20 08:59 Last Admin: 11/08/20 09:20 Dose: 2.5 mg Documented by: Insulin Aspart (Insulin Aspart 100 Units/Ml 3 Ml Pen) 0 units SC ACHS [facility] Stop: 12/06/20 17:29 Last Admin: 11/08/20 09:15 Dose: 10 units Documented by: Insulin Glargine (Insulin Glargine Solostar 100 Units/Ml 3 Ml Pen) 0 units SC BID [facility]; Protocol Stop: 12/06/20 20:59 Last Admin: 11/08/20 09:17 Dose: 40 units Documented by: Insulin Human NPH (Insulin Human Nph) 37 units SC QAM [facility]; Protocol Stop: 12/08/20 08:59 Last Admin: 11/08/20 09:17 Dose: 37 units Documented by: Losartan Potassium (Losartan Potassium 50 Mg Tab) 50 mg PO DAILY TERRI Stop: 12/07/20 08:59 Last Admin: 11/08/20 09:21 Dose: 50 mg Documented by: Miscellaneous (Carbohydrates For Hypoglycemia ) 15 - 30 gm PO UD PRN PRN Reason: Hypoglycemia Treatment Stop: 12/06/20 20:29 Miscellaneous Information (Pharmacy Glycemic Mgmt Consult) 1 ea N/A UD PRN PRN Reason: Consult Stop: 12/06/20 16:32 Prednisone (Prednisone 20 Mg Tab) 60 mg PO DAILY [facility] Stop: 12/06/20 15:14 Last Admin: 11/08/20 09:22 Dose: 60 mg Documented by: Rosuvastatin Calcium (Rosuvastatin Calcium 20 Mg Tab) 40 mg PO DAILY [facility] Stop: 12/07/20 08:59 Last Admin: 11/08/20 09:21 Dose: 40 mg Documented by:
--- NOTE | 2020-11-08 17:37 | Discharge Summary ---
Date of Service November 08, 2020 Admission HPI Per Admitting Provider 85-year-old male with PMH DM type II, dyslipidemia, HTN, history of bladder cancer, and other problems listed below who presents to the ED by referral of outpatient provider for evaluation of ongoing rash. On 10/25, patient was seen in clinic and diagnosed with dermatitis. Was placed on a prednisone taper. Was reevaluated on 10/30 and rash was worsening so he then received Solu-Medrol IM x1 and started on Pepcid and Bactrim. Patient was reevaluated once again today and it was noted that blisters were worsening and started to involve patient's palms. He was then referred to the ED for further evaluation. No oral involvement is noted. Patient denies fevers and chills. Reports he has been feeling well. No chest pain or shortness of breath. Denies lightheadedness, dizziness, diaphoresis, syncopal events. No abdominal pain, nausea, vomiting, diarrhea. Denies urinary symptoms. Through secure texting [employer], I sent Dr. Man Sosa, dermatology at [facility] [place], pictures of patient's diffuse rash and blisters. He feels as though rash is consistent with bullous pemphigoid. Recommends prednisone 60 mg daily x1 week and then to reduce by 10 mg every week. Will need close outpatient follow-up with dermatology for biopsy. Patient will be admitted for close monitoring of blood sugars while receiving high-dose steroids. Admission Exam Per Admitting Provider Constitutional: WD/WN, vitals as above Eyes: PERRL, conjunctivae normal, anicteric sclerae ENMT: external ear and nose normal, oropharynx normal Respiratory: normal respiratory effort, lungs clear to auscultation Cardiovascular: Rate/Rhythm: regular rate and regular rhythm Vessels: normal peripheral pulses Extremities: no edema Gastrointestinal (Abdomen): normal bowel sounds, soft, nontender, no hepatosplenomegaly Musculoskeletal: no cyanosis or clubbing, extremities motor strength 5/5 Skin: + rash Diffuse erythematous rash with some scattered areas of blistering involving bilateral arms and legs and trunk Neurologic: PERRL, EOMI, accommodation nl, no face palsy, no dysarthria Psychiatric: A+Ox3, euthymic affect Principal Diagnosis Bullous pemphigoid, type 2 diabetes on insulin, chronic kidney disease, hypertension Discharge Exam Constitutional well developed and well nourished; not ill appearing Eyes PERRL, conjunctivae normal, anicteric sclerae ENMT external ear and nose normal, oropharynx normal Neck trachea midline, no thyromegaly Respiratory normal respiratory effort, lungs clear to auscultation Cardiovascular Rate/Rhythm: regular rate and regular rhythm Heart Sounds: normal S1 and normal S2; no murmur Gastrointestinal (Abdomen) normal bowel sounds, soft, nontender, no hepatosplenomegaly Lymphatic no cervical or axillary lymphadenopathy Discharge Data Allergies Allergy/AdvReac Type Severity Reaction Status Date / Time No Known Allergies Allergy Mild Verified 11/06/20 12:01 Consultations 11/06/20 13:06 ED Decision to Admit Stat Diabetes Follow up Diabetes Follow-up Needed for HgbA1c >9% Hospital Course (1) Bullous pemphigoid: Patient presenting by referral of PCP for eval of ongoing rash Through secure texting [employer], I sent Dr. Man Sosa, dermatology at [facility], pictures of patient's diffuse rash and blisters. He feels as though rash is consistent with bullous pemphigoid. Recommends prednisone 60 mg daily x1 week and then to reduce by 10 mg every week. Will need close outpatient follow-up with dermatology for biopsy. Scheduled famotidine, as needed Benadryl Clinically much better and with with more than 70% improvement of his rash Even better today but the bullous lesion persists He will have biopsy on of this month Will be discharged home this afternoon (2) DM type 2 (diabetes mellitus, type 2): -hgb a1c 12.8 03/2020 Hemoglobin A1c is pending On Lantus, Novolog, and Ozempic at home Prednisone has not been changing his blood sugar too much Blood sugar remains stable Appreciate pharmacy input and recommendation (3) HTN (hypertension): Blood pressure remains controlled (4) CKD (chronic kidney disease), stage IV: -Baseline creatinine runs in the high 1's -Noted to be 1.8 today -Creatinine went up to 2.35 -We will give intravenous fluid and and was advised to drink more fluid -Creatinine is improved to 1.95 -He was advised to drink more fluid (5) DVT prophylaxis: Subcu heparin Discharge home this afternoon Total Time Total Time Spent Total Time Spent (In Minutes): 35 minutes Discharge Plan Discharge Items Patient Disposition: Home - Self-Care Reason For Visit: BULLOUS PEMPHIGOID Discharge Diagnosis: Bullous pemphigoid, type 2 diabetes on insulin, chronic kidney disease, hypertension Condition on Discharge: Good Activity: Resume your previous activity Non-emergency contact: Primary Care Provider Call non-emergency contact if: you have any medication questions and your symptoms worsen Follow-up/Referrals: Laura Self DO [Primary Care Provider] - (Date & Time 11/12/2020 11:00 AM Provider Harpal Bello DO Department Family Practice [facility] ) Cassandra Covarrubias MD [Outside Practitioners] - (Date & Time 11/10/2020 11:45 AM Provider Cassandra Covarrubias MD Department Dermatology [facility] ) Diet: Carb Consistent or DM2 Addtl Attending Provider Instructions: Please take your medications as directed Prednisone will increase your blood sugar and your insulin doses have been changed to control your blood sugar which needs to be adjusted as an outpatient when your prednisone doses are decreased and eventually taken off. ((This will be your change of Insulin doses while you are on Prednisone: Continue Lantus 60 units BID + Semaglutide 1 mg weekly Novolog -- increase breakfast and lunch Novolog to 25 units. Continue Novolog 18 units with dinner Close follow-up with PCP recommended)) Please keep appointment with the radiocommunications technician for skin biopsy as a scheduled Pending Studies at Discharge: No Stand-Alone Forms: [employer], Smoking Cessation Medications and DC Order Prescriptions: New prednisone 10 mg tablet 10 mg PO UD Qty: 126 RF: 0 Continued atenolol 25 mg Tablet 25 mg PO DAILY Qty: 0 RF: 0 aspirin 81 mg Tablet,Delayed Release (Dr/Ec) 81 mg PO DAILY Qty: 0 RF: 0 atorvastatin 40 mg Tablet 40 mg PO PM Qty: 0 RF: 0 insulin aspart U-100 [Novolog Flexpen U-100 Insulin] 100 unit/mL Insulin Pen 16 - 18 unit SUBCUT TID RF: 0 Lantus Solostar U-100 Insulin 100 unit/mL (3 mL) Insulin Pen 60 unit SUBCUT BID RF: 0 losartan 50 mg tablet 50 mg PO DAILY RF: 0 famotidine 10 mg Tablet 10 mg PO Q2D RF: 0 indapamide 2.5 mg tablet 2.5 mg PO DAILY RF: 0 allopurinol 100 mg tablet 100 mg PO BID RF: 0 ascorbic acid (vitamin C) [Vitamin C] 500 mg Tablet 500 mg PO DAILY RF: 0 rosuvastatin 40 mg tablet 40 mg PO DAILY RF: 0 Ozempic 1 mg/dose (4 mg/3 mL) pen injector 1 mg SUBCUT WK RF: 0 Discontinued sulfamethoxazole-trimethoprim 400-80 mg tablet 1 tab PO BID RF: 0 Discharge Orders: Discharge Order (Routine); Ordered 11/08/20 Ordered By: Daniel Wolff/Other Patient Handouts: Understanding Bullous Pemphigoid Admission Data Admit Date/Time: 11/06/20 14:51 Attending Provider: Daniel Lopez Admit Provider: Daniel Lopez Primary Care Provider: Laura Self Other Providers: Daniel Lopez Other Interventions: Discharge Summary Assessment (RN) Last Done: 11/08/20 14:55
== END 2020-11-08 16:52 | disposition home or self-care (01) ==
LOC: ED 10:41 → 3N 10:41